=== PATIENT | male | born 1935 | race African-American/Black ===

== ENCOUNTER 2022-03-25 13:31 | Inpatient (IN) | payer BC, OTHER ==
[~2022-03-25] VITALS: Ht 167.6 cm; Wt 61.2 kg
[2022-03-25 14:01] LABS: HEMATOCRIT 37.9 % (31.2-41.9); MEAN CORPUSCULAR HEMOGLOBIN 29.9 uug (24.7-32.8); MEAN CORPUSCULAR VOLUME 88.9 fL (75.5-95.3); PLATELET COUNT (AUTO) 303 K/uL (179-408)
[2022-03-25] MEDS ORDERED: ACETAMINOPHEN ES 500 MG TABLET PO ONE (14:15)
[2022-03-25] MEDS ORDERED: AZITHROMYCIN IV 500 MG in IV DEXTROSE 5% 250 ML IV ONE (14:15)
[2022-03-25] MEDS ORDERED: ALBUTEROL SULFATE 2.5 MG/3 ML NEBU NEB ONE (14:15)
[2022-03-25] MEDS ORDERED: CEFTRIAXONE 1 G in IV DEXTROSE 5% 50 ML IV ONE (14:15)
[2022-03-25] MEDS ORDERED: methylPREDNISolone SOD SUCC 125 MG/2 ML VIAL IV ONE (14:15)
[2022-03-25] MEDS ORDERED: IPRATROPIUM BROMIDE 0.5 MG/2.5 ML NEBU NEB ONE (14:15)
[2022-03-25] MEDS ORDERED: ALBUTEROL SULFATE 2.5 MG/3 ML NEBU ONE (14:19)
[2022-03-25] MEDS ORDERED: IPRATROPIUM BROMIDE 0.5 MG/2.5 ML NEBU ONE (14:19)
[2022-03-25 14:26] LABS: ALANINE AMINOTRANSFERASE 31 U/L (14-59); ALKALINE PHOSPHATASE 88 U/L (50-136); ASPARTATE AMINOTRANSFERASE 29 U/L (15-37); BILIRUBIN,DIRECT 0.2 mg/dL (0.0-0.2); BILIRUBIN,TOTAL 0.5 mg/dL (0.2-1.0); CARBON DIOXIDE 23 mmol/L (21-32); CREATININE 1.3 mg/dL (0.6-1.3); GLUCOSE 180 mg/dL (74-106); TOTAL PROTEIN, SERUM 7.7 g/dL (6.4-8.2); UREA NITROGEN, BLOOD 29 mg/dL (7-18)
[2022-03-25] MEDS ORDERED: CEFTRIAXONE /D5W 50ML IVPB **ER PYXIS IV ONE (14:26)
[2022-03-25] MEDS ORDERED: ACETAMINOPHEN ES 500 MG TABLET ONE (14:27)
[2022-03-25] MEDS ORDERED: AZITHROMYCIN 500MG/ D5W 250ML IVPB **ER PYXIS ONLY IV ONE (14:27)
[2022-03-25] MEDS ORDERED: methylPREDNISolone SOD SUCC 125 MG/2 ML VIAL ONE (14:27)
[2022-03-25 14:32] LABS: CHLORIDE 100 mmol/L (98-107)
[2022-03-25] MEDS ORDERED: IV NORMAL SALINE 1000 ML BAG IV ONE (14:45)
[2022-03-25] MEDS ORDERED: DAPA5TAB PO (15:01)
[2022-03-25] MEDS ORDERED: ONDANSETRON 4 MG/2 ML VIAL IV PRN (15:45)
[2022-03-25] MEDS ORDERED: MAGNESIUM HYDROXIDE 30 ML LIQUID UDC PO PRN (15:45)
[2022-03-25] MEDS ORDERED: ACETAMINOPHEN 325 MG TABLET PO PRN (15:45)
[2022-03-25] MEDS ORDERED: REMEDY ESSENTIAL ZINC PASTE 113 GM TP PRN (15:45)
[2022-03-25] MEDS ORDERED: DEXTROSE 50% 50 ML DISP.SYRIN IV PRN (15:45)
[2022-03-25 20:00] VITALS: BP 111/48
[2022-03-25] MEDS: MEROPENEM 1 G in IV NORMAL SALINE 100 ML IV SCH (21:01)
[2022-03-25] MEDS: BLOOD SUGAR DIAGNOSTIC 1 EACH STRIP VI SCH (21:24)
[2022-03-25] MEDS: INSULIN REGULAR, HUMAN 300 UNIT/3 ML VIAL SQ PRN (21:26)
[2022-03-25] MEDS: ENOXAPARIN SODIUM 40 MG/0.4 ML DISP.SYRIN SQ SCH (21:26)
[2022-03-25] MEDS: methylPREDNISolone SOD SUCC 40 MG/ML VIAL IV SCH (21:27)
[2022-03-25] MEDS ORDERED: MEROPENEM 0.5 G in IV NORMAL SALINE 50 ML IV SCH (22:00)
[2022-03-26] VITALS: BP 118/53
[2022-03-26] MEDS ORDERED: IPRATROPIUM BROMIDE 0.5 MG/2.5 ML NEBU NEB PRN
[2022-03-26 01:40] LABS: *BILIRUBIN,URIN NEGATIVE (NEGATIVE); *BLOOD, URINE NEGATIVE (NEGATIVE); *CLARITY,URINE CLEAR (CLEAR); *COLOR,URINE YELLOW (YELLOW); *KETONES,URINE NEGATIVE (NEGATIVE); *UROBILINOGEN,URINE 0.2 E.U./dl (NORMAL); LEUKOCYTE ESTERASE ,URINE NEGATIVE (NEGATIVE); NITRITE, URINE NEGATIVE (NEGATIVE); UGLUCOSE 3+ (NEGATIVE)
[2022-03-26 04:00] VITALS: BP 105/58
[2022-03-26] MEDS: methylPREDNISolone SOD SUCC 40 MG/ML VIAL IV SCH ×3 (06:16→20:29)
[2022-03-26] MEDS: BLOOD SUGAR DIAGNOSTIC 1 EACH STRIP VI SCH ×4 (06:17→20:34)
[2022-03-26 06:26] LABS: HEMATOCRIT 33.6 % (36.7-47.1); MEAN CORPUSCULAR HEMOGLOBIN 30.4 uug (23.8-33.4); MEAN CORPUSCULAR VOLUME 88.2 fL (73.0-96.2); PLATELET COUNT (AUTO) 294 K/uL (152-348)
[2022-03-26 06:50] LABS: CREATININE 1.2 mg/dL (0.6-1.3); MAGNESIUM 2.1 mg/dL (1.8-2.4); PHOSPHOROUS 3.9 mg/dL (2.5-4.9)
[2022-03-26 08:01] VITALS: BP 125/65
[2022-03-26] MEDS: INSULIN REGULAR, HUMAN 300 UNIT/3 ML VIAL SQ PRN ×4 (08:13→20:35)
[2022-03-26] MEDS: MEROPENEM 1 G in IV NORMAL SALINE 100 ML IV SCH ×2 (08:32→20:27)
[2022-03-26 10:33] LABS: *BILIRUBIN,URIN NEGATIVE (NEGATIVE); *BLOOD, URINE 1+ (NEGATIVE); *CLARITY,URINE CLEAR (CLEAR); *COLOR,URINE YELLOW (YELLOW); *KETONES,URINE NEGATIVE (NEGATIVE); *UROBILINOGEN,URINE 0.2 E.U./dl (NORMAL); LEUKOCYTE ESTERASE ,URINE NEGATIVE (NEGATIVE); NITRITE, URINE NEGATIVE (NEGATIVE); UGLUCOSE 2+ (NEGATIVE)
[2022-03-26 10:57] LABS: *CREATININE,URINE 56.1 mg/dL (30-125); *URINE TOTAL PROTEIN RANDOM 22.4 mg/dL (<150/24HR)
[2022-03-26] MEDS ORDERED: GLIP5TAB13 PO (11:28)
[2022-03-26] MEDS ORDERED: DULO20CA PO (11:28)
[2022-03-26] MEDS ORDERED: ATOR40TA PO (11:28)
[2022-03-26] MEDS ORDERED: ASPI-618 PO (11:28)
[2022-03-26] MEDS ORDERED: FLUT1DIS28 IH (11:28)
[2022-03-26] MEDS ORDERED: INSU100V28 SQ (11:30)
[2022-03-26] MEDS ORDERED: HYDR-500 PO (11:30)
[2022-03-26] MEDS ORDERED: SITA100T PO (11:31)
[2022-03-26] MEDS ORDERED: OMEP20TA5 PO (11:33)
[2022-03-26] MEDS ORDERED: ONDA4TAB11 PO (11:33)
[2022-03-26] MEDS ORDERED: TAMS-3 PO (11:33)
[2022-03-26] MEDS ORDERED: MEGE400O5 PO (11:33)
[2022-03-26] MEDS ORDERED: DICL100G31 TP (11:34)
[2022-03-26 11:46] VITALS: BP 122/66
[2022-03-26] MEDS ORDERED: hydrOXYzine HCL 25 MG TABLET PO PRN (12:15)
[2022-03-26] MEDS ORDERED: FLUTICASONE/SALMETEROL 250/50 INHALER IH SCH (12:15)
[2022-03-26] MEDS: ASPIRIN EC 81 MG TABLET.DR PO SCH (12:52)
[2022-03-26] MEDS: DULOXETINE 20 MG CAPSULE.DR PO SCH (12:52)
[2022-03-26] MEDS: TAMSULOSIN HCL 0.4 MG CAP.SR.24H PO SCH ×2 (12:59→20:30)
[2022-03-26] MEDS: MEGESTROL ACETATE 400 MG/10 ML LIQUID UDC PO SCH ×2 (12:59→20:29)
[2022-03-26] MEDS: FLUTICASONE/VILANTEROL 1 EACH BLST.W.DEV INH SCH (13:00)
[2022-03-26] MEDS ORDERED: CEFTRIAXONE 1 G in IV DEXTROSE 5% 50 ML IV SCH (14:00)
[2022-03-26] MEDS ORDERED: AZITHROMYCIN IV 500 MG in IV DEXTROSE 5% 250 ML IV SCH ×4 (15:00)
[2022-03-26 15:09] LABS: BACTERIA,URINE NONE SEEN /HPF (NONE SEEN); SQUAMOUS EPITHELIAL CELL,UR FEW /HPF (NONE SEEN); URIC ACID CRYSTALS,URINE FEW /HPF (NONE SEEN); WBC,URINE NONE SEEN /HPF (0-3)
[2022-03-26 16:06] VITALS: BP 111/67
[2022-03-26 20:00] VITALS: BP 144/66
[2022-03-26] MEDS: ENOXAPARIN SODIUM 40 MG/0.4 ML DISP.SYRIN SQ SCH (20:28)
[2022-03-26] MEDS ORDERED: ATORVASTATIN 40 MG TABLET PO SCH (21:00)
[2022-03-27] VITALS: BP 142/70
[2022-03-27 04:00] VITALS: BP 123/65
[2022-03-27] MEDS: BLOOD SUGAR DIAGNOSTIC 1 EACH STRIP VI SCH ×2 (06:32→11:30)
[2022-03-27] MEDS: INSULIN REGULAR, HUMAN 300 UNIT/3 ML VIAL SQ PRN ×3 (06:34→12:49)
[2022-03-27] MEDS ORDERED: PANTOPRAZOLE SODIUM 40 MG TABLET.DR PO SCH (07:00)
[2022-03-27 07:22] LABS: BILIRUBIN,TOTAL 0.3 mg/dL (0.2-1.0); MAGNESIUM 2.1 mg/dL (1.8-2.4); PHOSPHOROUS 3.5 mg/dL (2.5-4.9); URIC ACID 4.8 mg/dL (3.5-7.2)
[2022-03-27 07:24] LABS: THYROID STIMULATING HORMONE 0.23 mIU/mL (0.358-3.740)
[2022-03-27 08:54] LABS: HEMATOCRIT 31.7 % (36.7-47.1); MEAN CORPUSCULAR HEMOGLOBIN 30.3 uug (23.8-33.4); PLATELET COUNT (AUTO) 306 K/uL (152-348)
[2022-03-27] MEDS: methylPREDNISolone SOD SUCC 40 MG/ML VIAL IV SCH (09:00)
[2022-03-27] MEDS: TAMSULOSIN HCL 0.4 MG CAP.SR.24H PO SCH (09:00)
[2022-03-27] MEDS: FLUTICASONE/VILANTEROL 1 EACH BLST.W.DEV INH SCH (09:00)
[2022-03-27] MEDS: DULOXETINE 20 MG CAPSULE.DR PO SCH (09:00)
[2022-03-27] MEDS: MEGESTROL ACETATE 400 MG/10 ML LIQUID UDC PO SCH (09:00)
[2022-03-27] MEDS: MEROPENEM 1 G in IV NORMAL SALINE 100 ML IV SCH (09:00)
[2022-03-27] MEDS: ASPIRIN EC 81 MG TABLET.DR PO SCH (09:00)
[2022-03-27] MEDS ORDERED: METH4TAB3 PO (11:17)
[2022-03-27] MEDS ORDERED: LEVO750T46 PO (11:17)
[2022-03-27 11:37] VITALS: BP 117/57
[2022-03-30 08:06] LABS: A/G RATIO 0.7 (0.7-1.7); ALBUMIN 2.5 g/dL (2.9-4.4); ALPHA-1-GLOBULIN 0.4 g/dL (0.0-0.4); ALPHA-2-GLOBULIN 1.1 g/dL (0.4-1.0); GAMMA GLOBULIN 1.3 g/dL (0.4-1.8); GLOBULIN, TOTAL 3.8 g/dL (2.2-3.9); M-SPIKE Not Observed g/dL (Not Observed)
== END 2022-03-27 14:55 | disposition home health service (06) | DRG 871 ==
LOC: ER 13:31 → EDSEX 13:31 → TELE-TD3 18:41 → TELE3 03-26 13:57 → MEDSURG3 03-27 08:00
PROVIDERS: ADMIT Nurse Practitioner Acute Care; ATTEND Nurse Practitioner Acute Care
DX: A41.9 Sepsis, unspecified organism (principal); J15.6 Pneumonia due to other Gram-negative bacteria; N17.0 Acute kidney failure with tubular necrosis; J91.8 Pleural effusion in other conditions classified elsewhere; E44.0 Moderate protein-calorie malnutrition; E87.1 Hypo-osmolality and hyponatremia; J44.0 Chronic obstructive pulmonary disease with (acute) lower respiratory infection; E78.5 Hyperlipidemia, unspecified; Z20.822 Contact with and (suspected) exposure to COVID-19; E86.1 Hypovolemia; E88.09 Other disorders of plasma-protein metabolism, not elsewhere classified; I25.10 Atherosclerotic heart disease of native coronary artery without angina pectoris; Z87.01 Personal history of pneumonia (recurrent); Z87.891 Personal history of nicotine dependence; Z88.0 Allergy status to penicillin; Z86.16 Personal history of COVID-19; Z95.0 Presence of cardiac pacemaker; E11.65 Type 2 diabetes mellitus with hyperglycemia; E83.52 Hypercalcemia; N40.0 Benign prostatic hyperplasia without lower urinary tract symptoms; Z68.21 Body mass index [BMI] 21.0-21.9, adult; Z79.4 Long term (current) use of insulin; Z79.84 Long term (current) use of oral hypoglycemic drugs
CPT/HCPCS: 36415; 71045; 83605; 83735; 83935; 83970; 84100; 84155; 84156; 84165; 84300; 84443; 84484; 84550; 85025; 85730; 87040; 87400; 93005; 93307; 93880; A4663; A9150; G0378; J0456; J0696; J1650; J1815; J2185; J2920; J2930; J3590; J7040; J7050; J8999